=== PATIENT | male | born 1950 | race American Indian/Alaskan Native ===

== ENCOUNTER 2016-09-17 17:03 | Inpatient (IN) | payer MEDICARE ==
--- NOTE | 2016-09-17 17:48 | Emergency Department Report ---
ED Syncope HPI - General Chief Complaint: Syncope Stated Complaint: SYNCOPE Time Seen by Provider: 09/17/16 17:47 - History of Present Illness Initial Comments: Patient is a 66-year-old male past history of congestive heart failure, hypertension who presents with syncopal event. Patient states that he has not had any fainting episode like this in the last 20 years. He states that he was outside helping his with the car when all of a sudden and he was on the ground. He is also is complaining of chest pain is located in the left side of his chest as a 4 out of 10 some achy type of pain it doesn't radiate nothing makes it better or worse. Current after his syncope. Patient states that he takes a daily aspirin. He states that he has not been compliant with all of his medications. He has no nausea no vomiting no palpitations. - Related Data Allergies/Adverse Reactions: Allergies No Known Allergies Allergy (Verified 09/17/16 20:10) Home Medications: Ambulatory Orders Aspirin 81 mg PO DAILY 09/17/16 AtorvaSTATin 80 mg PO HS 09/17/16 Carvedilol 25 mg PO BID 09/17/16 Lisinopril 30 mg PO DAILY 09/17/16 Ranitidine HCl 150 mg PO DAILY 09/17/16 glipiZIDE 10 mg PO DAILY 09/17/16 ED Review of Systems ROS: Stated complaint: SYNCOPE Other details as noted in HPI Constitutional: denies: chills, fever Eyes: denies: eye pain, eye discharge, vision change ENT: denies: ear pain, throat pain Cardiovascular: chest pain, syncope Endocrine: no symptoms reported Gastrointestinal: denies: abdominal pain, nausea, diarrhea Genitourinary: denies: urgency, dysuria Musculoskeletal: denies: back pain, joint swelling, arthralgia Skin: denies: rash, lesions Neurological: denies: headache, weakness, paresthesias Psychiatric: denies: anxiety, depression Hematological/Lymphatic: denies: easy bleeding, easy bruising ED Past Medical Hx - Past Medical History Previous Medical History?: Yes Hx Hypertension: Yes Hx Congestive Heart Failure: Yes Hx Diabetes: Yes - Surgical History Past Surgical History?: Yes Additional Surgical History: right knee/leg surgery at 16 years old - Social History Smoking Status: Former Smoker Substance Use Type: Alcohol, Marijuana - Medications Home Medications: Home Medications Medication Instructions Recorded Confirmed Last Taken Type Aspirin 81 mg PO DAILY 09/17/16 09/17/16 Unknown History AtorvaSTATin 80 mg PO HS 09/17/16 09/17/16 Unknown History Carvedilol 25 mg PO BID 09/17/16 09/17/16 Unknown History Lisinopril 30 mg PO DAILY 09/17/16 09/17/16 Unknown History Ranitidine HCl 150 mg PO DAILY 09/17/16 09/17/16 Unknown History glipiZIDE 10 mg PO DAILY 09/17/16 09/17/16 Unknown History ED Physical Exam - General Limitations: No Limitations General appearance: alert, in no apparent distress - Head Head exam: Present: atraumatic, normocephalic - Eye Eye exam: Present: normal appearance, EOMI - ENT ENT exam: Present: mucous membranes moist - Neck Neck exam: Present: normal inspection - Respiratory Respiratory exam: Present: normal lung sounds bilaterally. Absent: respiratory distress - Cardiovascular Cardiovascular Exam: Present: regular rate, normal rhythm. Absent: systolic murmur, diastolic murmur, rubs, gallop - GI/Abdominal GI/Abdominal exam: Present: soft, normal bowel sounds - Rectal Rectal exam: Present: deferred - Extremities Exam Extremities exam: Present: normal inspection - Back Exam Back exam: Present: normal inspection - Neurological Exam Neurological exam: Present: alert, oriented X3 - Psychiatric Psychiatric exam: Present: normal affect, normal mood - Skin Skin exam: Present: warm, dry, intact, normal color. Absent: rash ED Course Vital Signs 09/17/16 09/17/16 17:19 19:09 Temperature 98.4 F 98.7 F Pulse Rate 72 78 Respiratory 18 18 Rate Blood Pressure 141/84 Blood Pressure 104/55 [Right] O2 Sat by Pulse 99 97 Oximetry - Reevaluation(s) Reevaluation #1: 09/17/16 20:46 We'll give patient a full dose of aspirin patient states that even after the aspirin he still having chest pain will give patient IV analgesia. Patient agrees with admission. ED Medical Decision Making - Lab Data Result diagrams: 09/17/16 17:55 09/17/16 17:55 Laboratory Results - last 24 hr 09/17/16 09/17/16 09/17/16 17:55 17:55 17:55 WBC 5.3 RBC 2.93 L Hgb 8.8 L Hct 26.3 L MCV 90 MCH 30 MCHC 34 RDW 13.2 Plt Count 353 Lymph % (Auto) 16.5 [place] % (Auto) 10.2 H Eos % (Auto) 1.0 Baso % (Auto) 0.4 Lymph # 0.9 L [place] # 0.5 Eos # 0.1 Baso # 0.0 Seg Neutrophils % 71.9 H Seg Neutrophils # 3.8 PT 14.7 INR 1.16 H D-Dimer 6097.31 H Sodium 139 Potassium 4.4 Chloride 102.2 Carbon Dioxide 20 L Anion Gap 21 BUN 31 H Creatinine 2.1 H Estimated GFR 32 BUN/Creatinine Ratio 14.76 Glucose 168 H Calcium 9.2 Magnesium Total Bilirubin 0.40 AST 11 ALT 6 L Alkaline Phosphatase 76 Total Creatine Kinase CK-MB (CK-2) CK-MB (CK-2) Rel Index Troponin T Total Protein 6.9 Albumin 3.2 L Albumin/Globulin Ratio 0.9 Triglycerides Cholesterol LDL Cholesterol Direct HDL Cholesterol Cholesterol/HDL Ratio 09/17/16 17:55 WBC RBC Hgb Hct MCV MCH MCHC RDW Plt Count Lymph % (Auto) [place] % (Auto) Eos % (Auto) Baso % (Auto) Lymph # [place] # Eos # Baso # Seg Neutrophils % Seg Neutrophils # PT INR D-Dimer Sodium Potassium Chloride Carbon Dioxide Anion Gap BUN Creatinine Estimated GFR BUN/Creatinine Ratio Glucose Calcium Magnesium 2.70 H Total Bilirubin AST ALT Alkaline Phosphatase Total Creatine Kinase 47 L CK-MB (CK-2) 1.3 CK-MB (CK-2) Rel Index 2.7 Troponin T 0.031 H Total Protein Albumin Albumin/Globulin Ratio Triglycerides 97 Cholesterol 180 LDL Cholesterol Direct 123 HDL Cholesterol 38 L Cholesterol/HDL Ratio 4.73 - EKG Data -: EKG Interpreted by Me - EKG Data 09/17/16 20:47 EKG shows normal sinus rhythm LVH and prolonged QT no ST segment elevations or T -wave inversions. - Medical Decision Making Chief medical diagnosis: Syncope secondary to arrhythmia Differential medical diagnosis congestive heart failure, non-STEMI, Metabolic abnormality, Dehydration We'll get an EKG, chest x-ray, troponin, pain control, and limit patient Due to patient's risk factors and ongoing chest pain will admit patient for syncope Critical care attestation.: If time is entered above; I have spent that time in minutes in the direct care of this critically ill patient, excluding procedure time. ED Disposition Clinical Impression: Syncope and collapse, Chest pain at rest Disposition: DC-09 OP ADMIT IP TO THIS HOSP Is pt being admited?: Yes Does the pt Need Aspirin: No Condition: Stable Instructions: Chest Pain (ED), Syncope (ED) Referrals: PRIMARY CARE,MD [Primary Care Provider] - 3-5 Days Time of Disposition: 20:51
[2016-09-17 18:14] LABS: Basophils % (Auto) 0.4 % (0.0-1.8); Hematocrit 26.3 % (35.5-45.6); Hemoglobin 8.8 gm/dl (11.8-15.2); Mean Corpuscular HGB Conc 34 % (32-34); Mean Corpuscular Hemoglobin 30 pg (28-32); Mean Corpuscular Volume 90 fl (84-94); Platelet Count 353 K/mm3 (140-440); Red Blood Count 2.93 M/mm3 (3.65-5.03); Red Cell Distribution Width 13.2 % (13.2-15.2); White Blood Count 5.3 K/mm3 (4.5-11.0)
[2016-09-17 18:25] LABS: INR 1.16 (0.87-1.13)
--- NOTE | 2016-09-17 18:28 | Cat Scan Report ---
FINAL REPORT PROCEDURE: CT HEAD/BRAIN WO CON TECHNIQUE: Computerized tomography of the head was performed without contrast material. HISTORY: Syncope COMPARISON: No prior studies are available for comparison. FINDINGS: Air-fluid level is seen in the right maxillary sinus. Mastoid air cells are clear. No calvarial fracture is seen. There is likely pressure erosion of the medial wall of the right maxillary sinus. Vascular calcifications are seen in the distal vertebral arteries and distal ICAs. Idiopathic calcifications are seen in the basal ganglia. Cerebral ventricles are normal in size. Confluent mild hypodensities are seen in the periventricular white matter with more focal hypodensities seen in the basal ganglia and heads of the caudate nuclei. Findings are probably due to mild chronic small vessel ischemic changes. A recent lacunar infarct is not completely excluded. No acute intracranial hemorrhage or mass effect is seen. IMPRESSION: Probable mild chronic small vessel ischemic changes are seen but a recent lacunar infarct cannot be completely excluded in the basal ganglia. Likely changes of acute and chronic right maxillary sinusitis are seen.
[2016-09-17 18:32] LABS: Creatine Kinase MB 1.3 ng/mL (0.0-4.0)
[2016-09-17 18:34] LABS: Albumin 3.2 g/dL (3.9-5); Albumin/Globulin Ratio 0.9 %; BUN/Creatinine Ratio 14.76; Bilirubin,Total 0.4 mg/dL (0.1-1.2); Calcium 9.2 mg/dL (8.4-10.2); Chloride 102.2 mmol/L (98-107); Potassium 4.4 mmol/L (3.6-5.0); Total Protein 6.9 g/dL (6.3-8.2)
[2016-09-17 18:35] LABS: Magnesium 2.7 mg/dL (1.7-2.3)
[2016-09-17] MEDS ORDERED: BABY ASPIRIN PO ONE (19:54)
[2016-09-17] MEDS ORDERED: MORPHINE IV ONE (20:50)
--- NOTE | 2016-09-17 21:10 | Admit Criteria Form ---
Admission Criteria Documentation: CHEST PAIN Clinical Indications for Admission to Inpatient Care (Place 'X' for any and all applicable criteria): Admission is indicated for chest pain and ANY ONE of the following(1)(2)(3)(4)(5 ): [ ]I. Angina with acute coronary syndrome (Also use Myocardial Infarction or Angina guideline) [ ]II. Hemodynamic instability [X ]III. Angina needing acute intervention as indicated by ALL of the following (11)(12): [X ]a) Unstable angina is present as indicated by angina that is ANY ONE of the following: [ ]i) New onset [ ]ii) Nocturnal [X ]iii) Prolonged at rest [ ]iv) Progressive [X ]b) Angina warrants acute intervention as indicated by ANY ONE of the following: [ ]i) Recurrent angina (e.g, not responding as previously to treatment) [ ]ii) Angina at rest or with low-level activities despite initial medical therapy [ ]iii) New or presumably new ST-segment depression on ECG [ ]iv) Signs or symptoms of heart failure (eg, dyspnea, pulmonary edema) [ ]v) New or worsening mitral regurgitation [ ]vi) Hemodynamic instability [ ]vii) Dangerous arrhythmia (eg, sustained ventricular tachycardia) [ ]viii) History of percutaneous coronary intervention within 6 months [ ]ix) History of coronary artery bypass graft surgery [ ]x) KELLIE risk score of 2 or greater[A] [X ]xi) History of Diabetes(14) [ ]xii) High-risk cardiac ischemia findings on noninvasive testing (e.g, echocardiogram, treadmill testing, nuclear scan) [ ]xiii) Chronic renal insufficiency (ie, estimated GFR less than 60 mL/min/1.732m) [ ]xiv) Left ventricular ejection fraction less than 40% [ ]IV. Evidence of IL (eg, cardiac biomarkers positive, ST-segment elevation on ECG) also use Myocardial Infarction Criteria Form. [ ]V. Pulmonary edema [ ]. Respiratory distress [ ]VII. Chest pain indicative of serious diagnosis other than coronary artery disease (eg, aortic dissection) [ ]VIII. Contraindications and/or Inappropriate clinical situations for Observational Care in patients with Chest Pain, when ANY ONE of the following is required: [ ]a) Patient with risk factor for pulmonary embolism, acute coronary syndrome and myocardial infarction (18) [ ]b) Patient with Pulmonary embolism require an average LOS of 4.3 days, therefore emergency department observation management is inappropriate 18,23 [ ]c) Painful condition/s in the elderly, have the highest rate of recidivism after emergency department observation management (10.8%) 20,21,22 [ ]d) Elevated cardiac biomarker requires intensive and exhaustive care (19) [ ]IX. General contraindications and/or Inappropriate clinical situations for Observational Care in patients with Chest Pain, when ANY ONE of the following is required: [ ]a) Prediction of prolongation of LOS based on ANY ONE of the following may be considered as a contraindication for observational care 2, 3, 4, 5, 6, 7, 8, 9, 10, 11 [ ]i) Age > 65 yrs. [ ]ii) Patient arriving by ambulance [ ]iii) Patient with high acuity [ ]iv) Patient requiring vital sign monitoring [ ]v) Patient on IV medication [ ]b) Systolic blood pressures 180mmHg 3,12 [ ]c) Patient with altered mental status including delirium and other alteration of consciousness, (3) [ ]d) Patient whose discharge disposition will be to a group home home or rehabilitation home should not be managed in Emergency Department Observation Unit. CMS rule requires 3 days hospital stay before such placement. 3,13 [ ]e) Patient with failure to thrive due to broad array of etiologies 3,16,17 [ ]f) Inability to ambulate 3,14 Extended stay beyond goal length of stay may be needed for (1)(28): [ ]a) Specific condition diagnosed after evaluation (eg, pulmonary embolism, aortic dissection) [ ]b) Unstable angina [ ]c) Continued suspicion of acute coronary syndrome with inability to complete needed cardiac evaluation (eg, patient clinically unable to undergo stress testing) [ ]d) Myocardial infarction (Contents from ANGINA and CHEST PAIN clinical indications for admission to inpatient care have been integrated in this form) The original [employer] content created by [employer] has been revised. The portions of the content which have been revised are identified through the use of italic text or in bold, and [email or web address] has neither reviewed nor approved the modified material. All other unmodified content is copyright [employer]. Please see references footnoted in the original [email or web address] edition 2016 Admission Criteria Met: Yes
[2016-09-17] MEDS ORDERED: ZOFRAN IV PRN (23:03)
[2016-09-17] MEDS ORDERED: TYLENOL PO PRN (23:06)
--- NOTE | 2016-09-18 00:29 | Nuclear Medicine Report ---
FINAL REPORT EXAM: NM LUNG SCAN PERF/VENT HISTORY: evaluate for pe patient has elevated creatine TECHNIQUE: The nuclear medicine ventilation perfusion study was performed. The patient was given 17 mCi of Xe 133 gas for the ventilation study and 5.0 mCi of technetium 99m MAA for the perfusion study. Images were acquired in the standard projections. Correlation is made with chest radiograph performed on the same date. PRIORS: None. FINDINGS: There is normal distribution of the radiopharmaceutical from both the ventilation and perfusion studies. There are no defects. IMPRESSION: Normal VQ scan. No evidence of PE.
[2016-09-18 02:04] LABS: Creatine Kinase MB 1.3 ng/mL (0.0-4.0)
[2016-09-18] MEDS: NITRO-BID 2% TP SCH ×3 (06:01→18:57)
[2016-09-18 06:24] LABS: Creatine Kinase MB 1.3 ng/mL (0.0-4.0)
[2016-09-18] MEDS ORDERED: GLUCOTROL PO SCH (08:00)
[2016-09-18] MEDS: NACL 0.9% 1000 ML 1,000 ML IV SCH ×2 (08:58→18:55)
[2016-09-18] MEDS: PEPCID PO SCH (09:00)
[2016-09-18] MEDS: COREG PO SCH ×2 (09:02→22:13)
[2016-09-18] MEDS: ZESTRIL PO SCH (09:03)
[2016-09-18] MEDS: ASPIRIN PO SCH (09:03)
[2016-09-18] MEDS: HEPARIN SUB-Q SCH ×2 (09:04→22:13)
--- NOTE | 2016-09-18 09:17 | History and Physical Report ---
CHIEF COMPLAINT: Syncopal attack and other complaint include chest pain. HISTORY OF PRESENT ILLNESS: The patient is a 66-year-old male who said he was outside trying to help his with the care and then the next thing he knows he was on the ground. He passed out and the said that the patient passed out for about 15 minutes. There was no history of jerking movements of the body. No history of foaming in the mouth or urinary incontinence. The patient said that he has been having chest pain prior to the syncopal attack and that the chest pain continued with a level of 4/10. Pain is in the retrosternal and precordial area. It does not radiate, was not associated with nausea, vomiting or diaphoresis. There was also no history of shortness of breath. The patient was brought to the Emergency Room. PAST MEDICAL HISTORY: Pertinent for hypertension, congestive heart failure, diabetes mellitus. PAST SURGICAL HISTORY: Pertinent for right knee surgery at 51 years of age. FAMILY HISTORY: Noncontributory. SOCIAL HISTORY: The patient used to smoke cigarettes, but does not smoke currently, drinks alcohol and uses illicit drugs, notably marijuana. MEDICATIONS: The patient's home medications include aspirin 81 mg daily, rosuvastatin 80 mg daily, carvedilol 25 mg by mouth twice daily, Lisinopril 30 mg by mouth daily, ranitidine 150 mg by mouth twice daily, glipizide 10 mg by mouth daily. ALLERGIES: There are no known drug allergies. REVIEW OF SYSTEMS: CONSTITUTIONAL: There is no fever, no chills, no diaphoresis. HEENT: There is no headache or sore throat. CARDIOVASCULAR: Chest pain is present. No orthopnea. RESPIRATORY: There is no shortness of breath or cough. GASTROINTESTINAL: There is no nausea, no vomiting, no abdominal pain, diarrhea or constipation. NEUROLOGICAL: Syncopal attack noted. No dizziness. No altered mental status. MUSCULOSKELETAL: There is no joint pain or swelling. DERMATOLOGICAL: There is no skin rash or itching. GENITOURINARY: There is no dysuria, hematuria, or flank pain. Rest of system review is normal. PHYSICAL EXAMINATION: GENERAL: At the time of exam, the patient was found to be alert, oriented x 3 and not in acute distress. VITAL SIGNS: Shows temperature of 98.7 degrees Fahrenheit, pulse of 78, respirations 18, blood pressure 104/55, O2 sat of 97% on room air. HEENT: Showed pupils to be equal, round, reactive to light and accommodation. Extraocular muscles are intact. NECK: Supple with no JVD or carotid bruit. CARDIOVASCULAR SYSTEM: Show first and second heart sounds with no gallops or murmurs. RESPIRATORY: Showed good air entry on both sides of the lung with no abnormal breath sounds. GASTROINTESTINAL: Show abdomen to be full, soft, nontender with no organomegaly or rigidity. NEUROLOGIC: Shows no focal deficit. MUSCULOSKELETAL: Show no joint swelling or tenderness. DERMATOLOGICAL: Showing no skin rash. GENITOURINARY: Showing no costovertebral angle tenderness. IMAGING STUDIES: The patient had a CT of the head done that shows probable mild chronic small vessel ischemic changes seen. The radiologist said that recent lacunar infarct cannot be completely excluded in the basal ganglia and it says that likely changes of acute and chronic right maxillary sinuses are seen. A CT of the head in addition to mild chronic small vessel ischemic changes, show some changes that showed that recent lacunar infarct cannot be completely excluded in the basal ganglia. The patient also had a V/Q scan done that shows no pulmonary embolism. LABORATORY RESULTS: The patient had CBC done with low hemoglobin of 8.8 and low hematocrit of 26.3. CBC differential shows elevated segmented neutrophils with a value of 71.9%. The patient's D-dimer was very high with a value of 6097 that led to the VQ scan test that showed no PE. Chemistry shows slightly low CO2 of 20, elevated BUN of 31 with elevated creatinine of 2.1. The patient's magnesium level is high with a value of 2.7 and cardiac enzymes show first troponin to be slightly elevated with a value of 0.031 with normal total CK and normal CK-MB as well as CK percentage intact. DIAGNOSES: 1. Syncope. 2. Chest pain. 3. Acute kidney injury. PLAN: The patient will be admitted to the medical floor on telemetry. We will have 2D echo done this morning as well as a Lexiscan stress test done this morning, 09/18/2016 because of chest pain. The patient will remain on continuous monitoring and will be n.p.o. for Lexiscan stress test. The patient will have cardiac enzymes checked q.6h. x 2 more levels. Will be on aspirin 325 mg by mouth daily and Tylenol 650 mg by mouth every 4 hours as needed for fever and headache. DVT prophylaxis will be through heparin 5000 units subcutaneously q.12h. and the patient will be on morphine 2 mg IV every 3 hours as needed for pain and will be on Zofran 4 mg IV q.6h. for nausea and vomiting. The patient will be on nitro paste 1 inch to anterior chest wall t.i.d. Will be on oxygen per chest pain protocol. The patient will also have bilateral carotid Doppler done this morning, 09/18/2016. JOB# [id number] OCN/NTS MTDD
--- NOTE | 2016-09-18 09:58 | Consultation ---
History of Present Illness - Reason for Consult Consult date: 09/18/16 acute renal failure - History of Present Illness Patient is a 66-year-old male past history of congestive heart failure, hypertension who presents with syncopal event. Patient states that he has not had any fainting episode like this in the last 20 years. He states that he was outside helping his with the car when all of a sudden and he was on the ground. He is also is complaining of chest pain is located in the left side of his chest as a 4 out of 10 some achy type of pain it doesn't radiate nothing makes it better or worse. Current after his syncope. Patient states that he takes a daily aspirin. He states that he has not been compliant with all of his medications. He has no nausea no vomiting no palpitations. Past History Past Medical History: diabetes, GERD, hypertension, hyperlipidemia Past Surgical History: total knee replacement Social history: lives with family, smoking. denies: alcohol abuse, prescription drug abuse, IV drug use Family history: hypertension Medications and Allergies Allergies Allergy/AdvReac Type Severity Reaction Status Date / Time No Known Allergies Allergy Verified 09/17/16 20:10 Home Medications Medication Instructions Recorded Confirmed Last Taken Type Aspirin 81 mg PO DAILY 09/17/16 09/17/16 Unknown History AtorvaSTATin 80 mg PO HS 09/17/16 09/17/16 Unknown History Carvedilol 25 mg PO BID 09/17/16 09/17/16 Unknown History Lisinopril 30 mg PO DAILY 09/17/16 09/17/16 Unknown History Ranitidine HCl 150 mg PO DAILY 09/17/16 09/17/16 Unknown History glipiZIDE 10 mg PO DAILY 09/17/16 09/17/16 Unknown History Active Meds: Active Medications Acetaminophen (Tylenol) 650 mg PO Q4H PRN PRN Reason: For Pain/Fever/Headache Aspirin (Aspirin) 325 mg PO QDAY [facility] Last Admin: 09/18/16 09:03 Dose: 325 mg Atorvastatin Calcium (Lipitor) 80 mg PO HS [facility] Carvedilol (Coreg) 25 mg PO BID [facility] Last Admin: 09/18/16 09:02 Dose: 25 mg Dextrose (D50w (25gm)) 50 ml IV PRN PRN PRN Reason: Hypoglycemia Famotidine (Pepcid) 20 mg PO DAILY [facility] Last Admin: 09/18/16 09:00 Dose: 20 mg Heparin Sodium (Porcine) (Heparin) 5,000 unit SUB-Q Q12HR [facility] Last Admin: 09/18/16 09:04 Dose: 5,000 unit Sodium Chloride (Nacl 0.9% 1000 Ml) 1,000 mls @ 125 mls/hr IV DIRECT [facility] Last Admin: 09/18/16 08:58 Dose: 125 mls/hr Insulin Aspart (Novolog) 0 units SUB-Q Q6HR [facility] PRN Reason: Protocol Lisinopril (Zestril) 30 mg PO DAILY [facility] Last Admin: 09/18/16 09:03 Dose: 30 mg Morphine Sulfate (Morphine) 2 mg IV Q3H PRN PRN Reason: Pain, Moderate (4-6) Nitroglycerin (Nitro-Bid 2%) 1 inch TP TIDNTG [facility] PRN Reason: Protocol Last Admin: 09/18/16 06:01 Dose: Not Given Ondansetron HCl (Zofran) 4 mg IV Q6H PRN PRN Reason: Nausea And Vomiting Pneumococcal Polyvalent Vaccine (Pneumovax 23) 0.5 ml IM .ONCE ONE Stop: 09/18/16 12:01 Review of Systems Constitutional: fatigue, weakness, malaise Cardiovascular: syncope Exam - Vital Signs Vital signs: Vital Signs Temp Pulse Resp BP Pulse Ox 98.4 F 72 18 141/84 99 09/17/16 17:19 09/17/16 17:19 09/17/16 17:19 09/17/16 17:19 09/17/16 17:19 - Physical Exam Narrative exam: - General Limitations: No Limitations General appearance: alert, in no apparent distress - Head Head exam: Present: atraumatic, normocephalic - Eye Eye exam: Present: normal appearance, EOMI - ENT ENT exam: Present: mucous membranes moist - Neck Neck exam: Present: normal inspection - Respiratory Respiratory exam: Present: normal lung sounds bilaterally. Absent: respiratory distress - Cardiovascular Cardiovascular Exam: Present: regular rate, normal rhythm. Absent: systolic murmur, diastolic murmur, rubs, gallop - GI/Abdominal GI/Abdominal exam: Present: soft, normal bowel sounds - Rectal Rectal exam: Present: deferred - Extremities Exam Extremities exam: Present: normal inspection - Back Exam Back exam: Present: normal inspection - Neurological Exam Neurological exam: Present: alert, oriented X3 - Psychiatric Psychiatric exam: Present: normal affect, normal mood - Skin Skin exam: Present: warm, dry, intact, normal color. Absent: rash Results - Lab Results 09/17/16 17:55 09/17/16 17:55 Most recent lab results Calcium 9.2 mg/dL (8.4-10.2) 09/17/16 17:55 Magnesium 2.70 mg/dL (1.7-2.3) H 09/17/16 17:55 Assessment and Plan Impression: * marcia on ckd * HTN * CAD * CHF * syncope * DM 2 Plan: * cr is 2.2 * check ua/urine lytes * renal us with pvr * strict i/os * daily lytes * avoid nephrotoxins, nsaids
[2016-09-18] MEDS ORDERED: D50W (25GM) IV PRN (10:00)
[2016-09-18 10:17] LABS: Calcium 9.1 mg/dL (8.4-10.2); Chloride 102.9 mmol/L (98-107); Potassium 4.4 mmol/L (3.6-5.0)
[2016-09-18] MEDS ORDERED: PNEUMOVAX 23 IM ONE (12:00)
--- NOTE | 2016-09-18 12:24 | Consultation ---
<JACQUELINE SEALS - Last Filed: 09/18/16 12:19> History of Present Illness Consult date: 09/18/16 Consult reason: syncope, other (NSVT) History of present illness: This is a 66yr old male who reports a history of nonischemic cardiomyopathy dating back 10yrs ago. At that time, patient reports he had a cardiac cath he reports as normal, with an ejection fraction 15-20%. Patient is followed by [facility] and reports over the years his ejection fraction recovered to 45%. Co-morbidities includes hypertension, diabetes, arthritis and hyperlipidemia. He is now admitted with syncope. Patient states he felt weak, became diaphoretic and passed out. Patient denies chest pain, shortness of breath and palpitations just prior to and after his syncopal episode. He denies a history of seizure disorder. His ECG shows a sinus rhythm with LVH and a prolonged QTc. No evidence of PE on ventilation perfusion scan. Head CT report cannot exclude a recent lacunar infarct. Chronic small vessel ischemic changes seen but no acute intracranial hemorrhage. Today on telemetry there was a transient episode on NSVT thus this cardiac consultation. Patient remained symptomatic. Past History Past Medical History: diabetes, GERD, hypertension, hyperlipidemia Past Surgical History: total knee replacement Social history: lives with family, smoking. denies: alcohol abuse, prescription drug abuse, IV drug use Family history: hypertension Medications and Allergies Allergies Allergy/AdvReac Type Severity Reaction Status Date / Time No Known Allergies Allergy Verified 09/17/16 20:10 Home Medications Medication Instructions Recorded Confirmed Last Taken Type Aspirin 81 mg PO DAILY 09/17/16 09/17/16 Unknown History AtorvaSTATin 80 mg PO HS 09/17/16 09/17/16 Unknown History Carvedilol 25 mg PO BID 09/17/16 09/17/16 Unknown History Lisinopril 30 mg PO DAILY 09/17/16 09/17/16 Unknown History Ranitidine HCl 150 mg PO DAILY 09/17/16 09/17/16 Unknown History glipiZIDE 10 mg PO DAILY 09/17/16 09/17/16 Unknown History Active Meds: Active Medications Acetaminophen (Tylenol) 650 mg PO Q4H PRN PRN Reason: For Pain/Fever/Headache Aspirin (Aspirin) 325 mg PO QDAY [facility] Last Admin: 09/18/16 09:03 Dose: 325 mg Atorvastatin Calcium (Lipitor) 80 mg PO HS [facility] Carvedilol (Coreg) 25 mg PO BID [facility] Last Admin: 09/18/16 09:02 Dose: 25 mg Dextrose (D50w (25gm)) 50 ml IV PRN PRN PRN Reason: Hypoglycemia Famotidine (Pepcid) 20 mg PO DAILY [facility] Last Admin: 09/18/16 09:00 Dose: 20 mg Heparin Sodium (Porcine) (Heparin) 5,000 unit SUB-Q Q12HR [facility] Last Admin: 09/18/16 09:04 Dose: 5,000 unit Sodium Chloride (Nacl 0.9% 1000 Ml) 1,000 mls @ 125 mls/hr IV DIRECT [facility] Last Admin: 09/18/16 08:58 Dose: 125 mls/hr Insulin Aspart (Novolog) 0 units SUB-Q Q6HR [facility] PRN Reason: Protocol Lisinopril (Zestril) 30 mg PO DAILY [facility] Last Admin: 09/18/16 09:03 Dose: 30 mg Morphine Sulfate (Morphine) 2 mg IV Q3H PRN PRN Reason: Pain, Moderate (4-6) Nitroglycerin (Nitro-Bid 2%) 1 inch TP TIDNTG [facility] PRN Reason: Protocol Last Admin: 09/18/16 06:01 Dose: Not Given Ondansetron HCl (Zofran) 4 mg IV Q6H PRN PRN Reason: Nausea And Vomiting Physical Examination Vital Signs Temp Pulse Resp BP Pulse Ox 98.4 F 72 18 141/84 99 09/17/16 17:19 09/17/16 17:19 09/17/16 17:19 09/17/16 17:19 09/17/16 17:19 General appearance: no acute distress HEENT: Positive: PERRL Neck: Positive: trachea midline Cardiac: Positive: Reg Rate and Rhythm Results 09/17/16 17:55 09/18/16 09:47 Cardiac Enzymes 09/18/16 09/18/16 Range/Units 00:46 05:05 CK-MB (CK-2) 1.3 1.3 (0.0-4.0) ng/mL Comprehensive Metabolic Panel 09/18/16 Range/Units 09:47 Sodium 139 (137-145) mmol/L Potassium 4.4 (3.6-5.0) mmol/L Chloride 102.9 (98-107) mmol/L Carbon Dioxide 23 (22-30) mmol/L BUN 30 H (9-20) mg/dL Creatinine 1.5 (0.8-1.5) mg/dL Glucose 130 H (75-100) mg/dL Calcium 9.1 (8.4-10.2) mg/dL Assessment and Plan Syncope Head CT report cannot exclude a recent lacunar infarct. Chronic small vessel ischemic changes seen but no acute intracranial hemorrhage. Anemia Acute renal failure Elevated D-dimer no evidence of PE on V\Q scan Hx of Nonischemic cardiomyopathy NSVT on telemetry; pt remained asymptomatic. Recommendations: Monitor CBC. Check a TSH. Repeat ECG. Echocardiogram. Pre-discharge persantine stress thallium test. <MUKUL BREWSTER Last Filed: 09/18/16 22:58> Medications and Allergies Active Meds: Active Medications Acetaminophen (Tylenol) 650 mg PO Q4H PRN PRN Reason: For Pain/Fever/Headache Aspirin (Aspirin) 325 mg PO QDAY [facility] Last Admin: 09/18/16 09:03 Dose: 325 mg Atorvastatin Calcium (Lipitor) 80 mg PO HS [facility] Last Admin: 09/18/16 22:13 Dose: 80 mg Carvedilol (Coreg) 25 mg PO BID [facility] Last Admin: 09/18/16 22:13 Dose: 25 mg Dextrose (D50w (25gm)) 50 ml IV PRN PRN PRN Reason: Hypoglycemia Famotidine (Pepcid) 20 mg PO DAILY [facility] Last Admin: 09/18/16 09:00 Dose: 20 mg Heparin Sodium (Porcine) (Heparin) 5,000 unit SUB-Q Q12HR [facility] Last Admin: 09/18/16 22:13 Dose: 5,000 unit Sodium Chloride (Nacl 0.9% 1000 Ml) 1,000 mls @ 125 mls/hr IV DIRECT [facility] Last Admin: 09/18/16 18:55 Dose: 125 mls/hr Insulin Aspart (Novolog) 0 units SUB-Q Q6HR [facility] PRN Reason: Protocol Last Admin: 09/18/16 18:57 Dose: Not Given Lisinopril (Zestril) 30 mg PO DAILY [facility] Last Admin: 09/18/16 09:03 Dose: 30 mg Morphine Sulfate (Morphine) 2 mg IV Q3H PRN PRN Reason: Pain, Moderate (4-6) Nitroglycerin (Nitro-Bid 2%) 1 inch TP TIDNTG [facility] PRN Reason: Protocol Last Admin: 09/18/16 18:57 Dose: 1 inch Ondansetron HCl (Zofran) 4 mg IV Q6H PRN PRN Reason: Nausea And Vomiting Physical Examination Vital Signs Temp Pulse Resp BP Pulse Ox 98.4 F 72 18 141/84 99 09/17/16 17:19 09/17/16 17:19 09/17/16 17:19 09/17/16 17:19 09/17/16 17:19 Results 09/17/16 17:55 09/18/16 09:47 Cardiac Enzymes 09/18/16 09/18/16 Range/Units 00:46 05:05 CK-MB (CK-2) 1.3 1.3 (0.0-4.0) ng/mL Comprehensive Metabolic Panel 09/18/16 Range/Units 09:47 Sodium 139 (137-145) mmol/L Potassium 4.4 (3.6-5.0) mmol/L Chloride 102.9 (98-107) mmol/L Carbon Dioxide 23 (22-30) mmol/L BUN 30 H (9-20) mg/dL Creatinine 1.5 (0.8-1.5) mg/dL Glucose 130 H (75-100) mg/dL Calcium 9.1 (8.4-10.2) mg/dL Assessment and Plan DISCUSS FINDINGS WITH EP--PT MAY NEED A LIFE VEST OR ICD
[2016-09-18] MEDS: NOVOLOG SUB-Q SCH ×2 (13:34→18:57)
--- NOTE | 2016-09-18 18:24 | Progress Note ---
Assessment and Plan Assessment and plan: Patient is a 66-year-old male with history of CHF, hypertension, nonischemic cardiomyopathy, recurrent syncope who presents to the hospital with complaints of syncopal episode which happened suddenly without any warning. He also reported chest pains left side is 4/10 in intensity for the fall. We'll admit her for follow workup he has had syncope in the past although none in the last 20 years was evaluated at [place], currently has been undergoing workup with cardiology and neurology better. While in the hospital he was noted to have a 5 run of nonsustained V. tach * Syncope * Anemia of chronic disease * Nonsustained V. tach patient asymptomatic * Mild ischemic cardiomyopathy * Coagulopathy with elevated d-dimer * Diabetes mellitus with hypoglycemia * Acute kidney injury likely secondary to vasomotor nephropathy Plan * Supportive care, cardiology input noted EKG, echocardiogram and stress test pending * TSH reviewed and normal. Renal function does show some improvements, nephrology input noted * V/Q scan negative for pulmonary embolism * Anticipate discharge in a.m. if stress test is negative recommend outpatient evaluation for tilt table for situational syncope. * DVT and GI prophylaxis * Of care discussed extensively with the patient and spouse they verbalized understanding History Interval history: Patient seen and examined this morning in no acute distress reports improvement denies any chest pain at this time. He reports that he has had multiple episodes of syncope for starting when he was age 41. Sometimes a situational while he is on the commode but at times it happens periodically he does note a palpitation with the symptoms at all times. Denies any nausea vomiting diarrhea this time. He states that he is having a workup at [facility]. Hospitalist Physical - Physical exam Narrative exam: VITAL SIGNS: Reviewed. GENERAL: The patient appeared well nourished and normally developed. Vital signs as documented. HEAD: No signs of head trauma. EYES: Pupils are equal. Extraocular motions intact. EARS: Hearing grossly intact. MOUTH: Oropharynx is normal. NECK: No adenopathy, no JVD. CHEST: Chest with clear breath sounds bilaterally. No wheezes, rales, or rhonchi. CARDIAC: Regular rate and rhythm. S1 and S2, without murmurs, gallops, or rubs. VASCULAR: No Edema. Peripheral pulses normal and equal in all extremities. ABDOMEN: Soft, without detectable tenderness. No sign of distention. No rebound or guarding, and no masses palpated. Bowel Sounds normal. MUSCULOSKELETAL: Good range of motion of all major joints. Extremities without clubbing, cyanosis or edema. NEUROLOGIC EXAM: Alert and oriented x 3. No focal sensory or strength deficits. Speech normal. Follows commands. PSYCHIATRIC: Mood normal. SKIN: No rash or lesions. - Constitutional Vitals: Temp Pulse Resp BP Pulse Ox 98.2 F 66 16 161/83 97 09/18/16 18:00 09/18/16 18:00 09/18/16 18:00 09/18/16 18:00 09/18/16 18:00 General appearance: Present: no acute distress Results - Labs CBC & Chem 7: 09/17/16 17:55 09/18/16 09:47 Labs: Laboratory Last Values WBC 5.3 K/mm3 (4.5-11.0) 09/17/16 17:55 RBC 2.93 M/mm3 (3.65-5.03) L 09/17/16 17:55 Hgb 8.8 gm/dl (11.8-15.2) L 09/17/16 17:55 Hct 26.3 % (35.5-45.6) L 09/17/16 17:55 MCV 90 fl (84-94) 09/17/16 17:55 MCH 30 pg (28-32) 09/17/16 17:55 MCHC 34 % (32-34) 09/17/16 17:55 RDW 13.2 % (13.2-15.2) 09/17/16 17:55 Plt Count 353 K/mm3 (140-440) 09/17/16 17:55 Lymph % (Auto) 16.5 % (13.4-35.0) 09/17/16 17:55 [place] % (Auto) 10.2 % (0.0-7.3) H 09/17/16 17:55 Eos % (Auto) 1.0 % (0.0-4.3) 09/17/16 17:55 Baso % (Auto) 0.4 % (0.0-1.8) 09/17/16 17:55 Lymph # 0.9 K/mm3 (1.2-5.4) L 09/17/16 17:55 [place] # 0.5 K/mm3 (0.0-0.8) 09/17/16 17:55 Eos # 0.1 K/mm3 (0.0-0.4) 09/17/16 17:55 Baso # 0.0 K/mm3 (0.0-0.1) 09/17/16 17:55 Seg Neutrophils % 71.9 % (40.0-70.0) H 09/17/16 17:55 Seg Neutrophils # 3.8 K/mm3 (1.8-7.7) 09/17/16 17:55 PT 14.7 Sec. (12.2-14.9) 09/17/16 17:55 INR 1.16 (0.87-1.13) H 09/17/16 17:55 D-Dimer 6097.31 ng/mlDDU (0-234) H 09/17/16 17:55 Sodium 139 mmol/L (137-145) 09/18/16 09:47 Potassium 4.4 mmol/L (3.6-5.0) 09/18/16 09:47 Chloride 102.9 mmol/L (98-107) 09/18/16 09:47 Carbon Dioxide 23 mmol/L (22-30) 09/18/16 09:47 Anion Gap 18 mmol/L 09/18/16 09:47 BUN 30 mg/dL (9-20) H 09/18/16 09:47 Creatinine 1.5 mg/dL (0.8-1.5) 09/18/16 09:47 Estimated GFR 57 ml/min 09/18/16 09:47 BUN/Creatinine Ratio 20.00 % 09/18/16 09:47 Glucose 130 mg/dL (75-100) H 09/18/16 09:47 POC Glucose 98 (70-105) 09/18/16 17:15 Calcium 9.1 mg/dL (8.4-10.2) 09/18/16 09:47 Magnesium 2.70 mg/dL (1.7-2.3) H 09/17/16 17:55 Total Bilirubin 0.40 mg/dL (0.1-1.2) 09/17/16 17:55 AST 11 units/L (5-40) 09/17/16 17:55 ALT 6 units/L (7-56) L 08/02/17 17:55 Alkaline Phosphatase 76 units/L (35-129) 09/17/16 17:55 Total Creatine Kinase 50 units/L (55-170) L 09/18/16 05:05 CK-MB (CK-2) 1.3 ng/mL (0.0-4.0) 09/18/16 05:05 CK-MB (CK-2) Rel Index 2.6 (0-4) 09/18/16 05:05 Troponin T 0.025 ng/mL (0.00-0.029) 09/18/16 05:05 Total Protein 6.9 g/dL (6.3-8.2) 09/17/16 17:55 Albumin 3.2 g/dL (3.9-5) L 09/17/16 17:55 Albumin/Globulin Ratio 0.9 % 09/17/16 17:55 Triglycerides 97 mg/dL (2-149) 09/17/16 17:55 Cholesterol 180 mg/dL (50-199) 09/17/16 17:55 LDL Cholesterol Direct 123 mg/dL (50-130) 09/17/16 17:55 HDL Cholesterol 38 mg/dL (40-59) L 09/17/16 17:55 Cholesterol/HDL Ratio 4.73 % 09/17/16 17:55 - Imaging and Cardiology CT Scan - head: image reviewed (no acute pathology on my exam)
[2016-09-19] MEDS: NOVOLOG SUB-Q SCH ×3 (00:42→14:57)
[2016-09-19] MEDS: MORPHINE IV PRN ×2 (00:53→01:07)
[2016-09-19] MEDS: NACL 0.9% 1000 ML 1,000 ML IV SCH (01:49)
[2016-09-19] MEDS: NITRO-BID 2% TP SCH ×2 (06:46→14:56)
[2016-09-19 07:41] LABS: Hemoglobin 7.5 gm/dl (11.8-15.2); Mean Corpuscular HGB Conc 33 % (32-34); Mean Corpuscular Hemoglobin 30 pg (28-32); Mean Corpuscular Volume 93 fl (84-94); Platelet Count 323 K/mm3 (140-440); Red Blood Count 2.48 M/mm3 (3.65-5.03); Red Cell Distribution Width 12.9 % (13.2-15.2); White Blood Count 5.7 K/mm3 (4.5-11.0)
[2016-09-19 08:02] LABS: Anion Gap 17 mmol/L; BUN/Creatinine Ratio 19.09; Blood Urea Nitrogen 21 mg/dL (9-20); Calcium 7.9 mg/dL (8.4-10.2); Carbon Dioxide 20 mmol/L (22-30); Chloride 108.8 mmol/L (98-107); Glucose 153 mg/dL (75-100); Potassium 4.1 mmol/L (3.6-5.0); Sodium 142 mmol/L (137-145)
[2016-09-19] MEDS ORDERED: LEXISCAN IV ONE (08:14)
[2016-09-19] MEDS: COREG PO SCH (10:47)
[2016-09-19] MEDS: HEPARIN SUB-Q SCH (10:49)
[2016-09-19] MEDS: PEPCID PO SCH (10:49)
[2016-09-19] MEDS: ZESTRIL PO SCH (10:49)
[2016-09-19] MEDS: ASPIRIN PO SCH (10:49)
--- NOTE | 2016-09-19 10:51 | Progress Note ---
Assessment and Plan Assessment: Syncope Head CT report cannot exclude a recent lacunar infarct. Chronic small vessel ischemic changes seen but no acute intracranial hemorrhage. Echo showing LVEF 50-55% MPI - No ischemia, LVEF 47%, low risk study Anemia Acute renal failure - resolved Elevated D-dimer no evidence of PE on V\Q scan Hx of Nonischemic cardiomyopathy LVEF significantly improved NSVT on telemetry; pt remained asymptomatic. Recommendations: No further cardiac work-up is needed Continue coreg and lisinopril, asa and lipitor Subjective Date of service: 09/19/16 Principal diagnosis: Syncope Interval history: Patient denies chest pain or shortness of breath Lexiscan completed without complications or ischemic ECG changes Objective Vital Signs Temp Pulse Resp BP Pulse Ox 09/19/16 10:47 76 159/86 09/19/16 09:44 97.7 F 76 16 159/86 98 09/19/16 05:35 97.8 F 79 18 113/73 99 09/19/16 00:55 98.7 F 77 20 118/77 09/18/16 20:58 97.9 F 72 18 126/78 98 09/18/16 20:24 98 09/18/16 19:50 77 09/18/16 18:57 66 161/83 09/18/16 18:00 98.2 F 66 16 161/83 97 09/18/16 13:35 77 102/60 09/18/16 11:40 98 09/18/16 11:26 98.0 F 75 16 105/62 99 - Physical Examination HEENT: Positive: PERRL Neck: Positive: trachea midline Cardiac: Positive: Reg Rate and Rhythm Lungs: Positive: Normal Exam - Labs and Meds CBC 09/19/16 Range/Units 07:19 WBC 5.7 (4.5-11.0) K/mm3 RBC 2.48 L (3.65-5.03) M/mm3 Hgb 7.5 L (11.8-15.2) gm/dl Hct 23.0 L (35.5-45.6) % Plt Count 323 (140-440) K/mm3 Comprehensive Metabolic Panel 09/19/16 Range/Units 07:19 Sodium 142 (137-145) mmol/L Potassium 4.1 (3.6-5.0) mmol/L Chloride 108.8 H (98-107) mmol/L Carbon Dioxide 20 L (22-30) mmol/L BUN 21 H (9-20) mg/dL Creatinine 1.1 (0.8-1.5) mg/dL Glucose 153 H (75-100) mg/dL Calcium 7.9 L (8.4-10.2) mg/dL
[2016-09-19] MEDS ORDERED: CEPHULAC PO PRN (11:17)
--- NOTE | 2016-09-19 11:55 | Discharge Summary ---
Providers - Providers Date of Admission: 09/17/16 22:46 Date of discharge: 09/19/16 Attending physician: SHARDA ALICIA MD 09/18/16 06:46 Consult to Physician [CONS] Routine Consulting Provider: ASHLEY GOULD Reason For Exam: MAMTA Place consult to:: Dr. Gould Notified:: Jennie VILLATORO Phone number called:: [phone] Was contact made?: Yes If yes, spoke with:: Flavia-Office Time called:: 09:10 09/18/16 09:31 Consult to Physician [CONS] Routine Consulting Provider: MUKUL CONNER Reason For Exam: NSVT Place consult to:: Dr. Luis Conner Notified:: Jennie VILLATORO Was contact made?: Yes If yes, spoke with:: Michael Bravo Primary care physician: CRISIS COUNSELOR Hospitalization Reason for admission: SYNCOPE Condition: Stable Hospital course: Patient is a 66-year-old male with history of CHF, hypertension, nonischemic cardiomyopathy, recurrent syncope who presents to the hospital with complaints of syncopal episode which happened suddenly without any warning. He also reported chest pains left side is 4/10 in intensity for the fall. We'll admit hIM for follow workup he has had syncope in the past although none in the last 20 years was evaluated at [place], currently has been undergoing workup with cardiology and neurology better. While in the hospital he was noted to have a 5 run of nonsustained V. tach. ON Admission the patient was seen by cardiology and also by case management coordinator patient was hydrated renal function did improve. 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 Stress test was done him was negative. * Syncope * Anemia of chronic disease * Nonsustained V. tach patient asymptomatic * Mild ischemic cardiomyopathy * Coagulopathy with elevated d-dimer * Diabetes mellitus with hypoglycemia * Acute kidney injury likely secondary to vasomotor nephropathy Disposition: - TO HOME OR SELFCARE Time spent for discharge: 35 MINS Core Measure Documentation - Palliative Care Palliative Care/ Comfort Measures: Not Applicable - Core Measures Any of the following diagnoses?: none - VTE Discharge Requirements Deep Vein Thrombosis/Pulmonary Embolism Present on Admission: No Exam - Physical Exam Narrative exam: VITAL SIGNS: Reviewed. GENERAL: The patient appeared well nourished and normally developed. Vital signs as documented. HEAD: No signs of head trauma. EYES: Pupils are equal. Extraocular motions intact. EARS: Hearing grossly intact. MOUTH: Oropharynx is normal. NECK: No adenopathy, no JVD. CHEST: Chest with clear breath sounds bilaterally. No wheezes, rales, or rhonchi. CARDIAC: Regular rate and rhythm. S1 and S2, without murmurs, gallops, or rubs. VASCULAR: No Edema. Peripheral pulses normal and equal in all extremities. ABDOMEN: Soft, without detectable tenderness. No sign of distention. No rebound or guarding, and no masses palpated. Bowel Sounds normal. MUSCULOSKELETAL: Good range of motion of all major joints. Extremities without clubbing, cyanosis or edema. NEUROLOGIC EXAM: Alert and oriented x 3. No focal sensory or strength deficits. Speech normal. Follows commands. PSYCHIATRIC: Mood normal. SKIN: No rash or lesions. - Constitutional Vitals: Temp Pulse Resp BP Pulse Ox 97.7 F 76 16 159/86 98 09/19/16 09:44 09/19/16 10:47 09/19/16 09:44 09/19/16 10:47 09/19/16 09:44 Plan Activity: advance as tolerated, up only with assistance Diet: low fat Special Instructions: record daily weights, record daily BP diary Additional Instructions: FOLLOW UP WITH CARDIAC, NEUROLOGY AT [facility]. Follow with GI for anemia work up Follow up with: PRIMARY CAREMD [Primary Care Provider] - 3-5 Days
[2016-09-19] MEDS ORDERED: COLACE PO SCH (12:00)
[2016-09-19 13:14] VITALS: BP 146/81
--- NOTE | 2016-09-19 14:52 | Progress Note ---
Assessment and Plan Impression: * marcia on ckd * HTN * CAD * CHF * syncope * DM 2 Plan: * His renal function has improved significantly. Serum creatinine is down to 1.1 * He most likely had a prerenal component * renal us with pvr * strict i/os * avoid nephrotoxins, nsaids * Okay to discharge patient home from renal standpoint Subjective Date of service: 09/19/16 Principal diagnosis: Syncope Interval history: Patient feels much better today. Denies any chest pain or shortness of breath. No nausea vomiting or diarrhea Objective - Vital Signs Vital signs: Vital Signs - 12hr 09/19/16 09/19/16 09/19/16 05:35 08:22 08:34 Temperature 97.8 F Pulse Rate 79 72 92 H Respiratory 18 Rate Blood Pressure 113/73 133/87 144/80 O2 Sat by Pulse 99 Oximetry 09/19/16 09/19/16 09/19/16 08:35 08:36 08:37 Temperature Pulse Rate 96 H 95 H 94 H Respiratory Rate Blood Pressure 106/72 108/71 115/70 O2 Sat by Pulse Oximetry 09/19/16 09/19/16 09/19/16 08:38 09:44 10:47 Temperature 97.7 F Pulse Rate 93 H 76 76 Respiratory 16 Rate Blood Pressure 120/76 159/86 159/86 O2 Sat by Pulse 98 Oximetry 09/19/16 13:12 Temperature 97.9 F Pulse Rate 81 Respiratory 18 Rate Blood Pressure 146/81 O2 Sat by Pulse 98 Oximetry - General Appearance General appearance: well-developed, well-nourished, appears stated age EENT: PERRL, mucous membranes moist Neck: no JVD, no thyromegaly, no carotid bruit, supple Respiratory: Present: Clear to Ascultation Cardiology: regular, normal heart rate, S1S2, no murmurs Gastrointestinal: normal, normoactive bowel sounds Integumentary: no rash, other (no edema) - Lab 09/19/16 07:19 09/19/16 07:19 Most recent lab results Calcium 7.9 mg/dL (8.4-10.2) L 09/19/16 07:19 Magnesium 2.20 mg/dL (1.7-2.3) 09/19/16 07:19
--- NOTE | 2016-09-19 16:31 | XRay Report ---
CHEST ONE VIEW INDICATION: Syncope. COMPARISON: None similar. FINDINGS: Portable, single, frontal chest radiograph demonstrates normal cardiomediastinal silhouette. Clear lungs. Mild aortic knob calcifications. Multilevel thoracic spondylosis. Extrinsic EKG leads. CONCLUSION: No acute disease in the chest. Please note that this exam is now made available for interpretation. Thank you for the opportunity to participate in this patient's care.
--- NOTE | 2016-09-19 20:31 | Treadmill Report ---
INDICATION: Chest pain. FINDINGS: There is no scintigraphic evidence of myocardial ischemia. There is evidence of a small and fixed inferior wall defect due to overlying diaphragmatic attenuation/adjacent gut uptake. The left ventricular ejection fraction is measured at 47% with normal wall motion and wall thickening. The left ventricular cavity is mildly dilated. CONCLUSION: 1. No scintigraphic evidence of myocardial ischemia. 2. Small fixed inferior wall defect due to diaphragmatic attenuation/adjacent gut uptake. 3. Mildly dilated left ventricular cavity with left ventricular ejection fraction measured at 47% and normal wall motion and thickening. 4. This is a low risk myocardial perfusion scan associated with a 1 year cardiovascular mortality of less than 1%. [facility]# [id number] DIANE/DUDLEY
--- NOTE | 2016-09-24 10:09 | Vascular Lab Report ---
CAROTID DUPLEX STUDY: RIGHT PSVEDV CCA PROX: 5515 CCA DIST:6719 ICA PROX: 4415 ICA MID: 8634 ICA DIST:00009 ECA: 52 VERT: 59 LEFT PSVEDV CCA PROX: 7521 CCA DIST: 7914 ICA PROX: 5615 ICA MID: 6828 ICA DIST: 70 30 ECA: 54 VERT: 44 15 REASON FOR EXAM: Carotid artery stenosis/syncope. COMMENTS ON THE RIGHT: Doppler frequency analysis is consistent with 16 to 49 percent diameter reduction of the internal carotid artery. Minimal amount of plaque is seen. The common carotid artery is patent. The external carotid artery is patent. The vertebral artery has antegrade flow. COMMENTS ON THE LEFT: Doppler frequency analysis is consistent with 16 to 49 percent diameter reduction of the internal carotid artery. Minimal amount of plaque is seen. The common carotid artery is patent. The external carotid artery is patent. The vertebral artery has antegrade flow. IMPRESSION: Less than 50% diameter reduction in the internal carotid arteries bilaterally. Consider repeat carotid artery duplex in 12 months.
== END 2016-09-19 15:38 | disposition home or self-care (01) | DRG 308 ==
LOC: ED 17:03 → 4A 22:46
PROVIDERS: ADMIT Internal Medicine; ATTEND Internal Medicine
PROC: 3E0234Z Introduction of Serum, Toxoid and Vaccine into Muscle, Percutaneous Approach (ICD-10-PCS; principal; 2016-09-18)
DX: I47.2 Ventricular tachycardia (principal); N17.0 Acute kidney failure with tubular necrosis; D68.9 Coagulation defect, unspecified; I13.0 Hypertensive heart and chronic kidney disease with heart failure and stage 1 through stage 4 chronic kidney disease, or unspecified chronic kidney disease; I42.9 Cardiomyopathy, unspecified; E11.649 Type 2 diabetes mellitus with hypoglycemia without coma; R55 Syncope and collapse; Z23 Encounter for immunization; Z79.82 Long term (current) use of aspirin; Z87.891 Personal history of nicotine dependence; K21.9 Gastro-esophageal reflux disease without esophagitis; E78.5 Hyperlipidemia, unspecified; Z96.659 Presence of unspecified artificial knee joint; Z82.49 Family history of ischemic heart disease and other diseases of the circulatory system; E11.22 Type 2 diabetes mellitus with diabetic chronic kidney disease; N18.9 Chronic kidney disease, unspecified; I50.9 Heart failure, unspecified; I25.10 Atherosclerotic heart disease of native coronary artery without angina pectoris; D63.8 Anemia in other chronic diseases classified elsewhere
CPT/HCPCS: 36415; 70450; 71010; 78452; 78582; 80048; 80053; 80061; 82550; 82553; 82962; 83735; 84443; 84484; 85025; 85027; 85379; 85610; 90732; 93005; 93010; 93017; 93306; 93880; 96374; A9270-GY; A9502; A9540; A9558; J1644; J2270; J2785; J7030